=== PATIENT | female | born 1985 | race Two or more races ===

== ENCOUNTER 2019-09-11 14:00 | Inpatient (IN) | payer OTHER ==
[~2019-09-11] VITALS: Ht 160 cm; Wt 86.2 kg
[2019-10-06] MEDS ORDERED: PRENATAL TABLE1 EAC1 PO (09:32)
== END 2019-10-08 12:30 | disposition home or self-care (01) | DRG 807 ==
LOC: LDR 10-06 13:10 → OB/GYN 10-06 13:10 → LDR 10-17 14:00
PROVIDERS: ADMIT Obstetrics & Gynecology; ATTEND Obstetrics & Gynecology
PROC: 10E0XZZ Delivery of Products of Conception, External Approach (ICD-10-PCS; principal; 2019-10-06)
PROC: 0KQM0ZZ Repair Perineum Muscle, Open Approach (ICD-10-PCS; 2019-10-06)
PROC: 4A1HXCZ Monitoring of Products of Conception, Cardiac Rate, External Approach (ICD-10-PCS; 2019-10-06)
DX: O70.1 Second degree perineal laceration during delivery (principal); Z37.0 Single live birth; Z3A.38 38 weeks gestation of pregnancy

== ENCOUNTER 2019-10-06 09:16 | Outpatient (CLI) | payer OTHER ==
[2019-10-06] MEDS ORDERED: PRENATAL TABLE1 EAC1 PO (09:32)
== END 2019-10-06 13:53 | disposition still patient (30) ==
LOC: OBS/DEL 09:16
PROVIDERS: ATTEND Obstetrics & Gynecology
DX: O47.1 False labor at or after 37 completed weeks of gestation (principal)